=== PATIENT | female | born 1940 | race Caucasian/White ===

== ENCOUNTER → 2018-10-10 13:41 | Outpatient (CLI) | payer MEDICARE, MEDICAID, SELFPAY ==
--- NOTE | 2018-10-11 10:22 | PM.PFT.1 ---
Pulmonary Function Test Referral & Results Date Patient Seen: 10/10/18 Requesting provider: Roque Leung Results: The spirometry demonstrates an FVC of 1.26 L which is 40% of predicted. The FEV1 was measured at 1.04 L which is 53% of predicted. The FEV1/FVC ratio was 83 which is 112% of predicted. Following the administration of bronchodilator there was of 49% improvement in FEF 25-75%. Lung volumes show an SVC of 1.69 L which is 64% of predicted. The diffusing capacity was measured at 13.61 which is 59% of predicted. No hemoglobin value was provided, so no correction for potential anemia could be made, if appropriate. The maximum voluntary ventilation was reduced Interpretation: This study demonstrates moderately severe to severe obstructive lung disease with an FEV1 of only 1.04 L. There is evidence of some benefit in small airway flow after bronchodilator based on improvement in FEF 25-75% as above There is also moderate restrictive lung disease based on reduction SVC There is also [id number]-[id number] disease of the capillary alveolar level based on reduction in diffusing capacity Clinical correlation suggested
== END ==
PROVIDERS: PCP Nurse Practitioner; Visit Provider Internal Medicine Cardiovascular Disease
DX: J44.1 Chronic obstructive pulmonary disease with (acute) exacerbation (principal)
CPT/HCPCS: 94060; 94726; 94729